=== PATIENT | female | born 1960 | race Caucasian/White ===

== ENCOUNTER 2019-10-17 16:50 | Emergency (ER) | payer BC ==
[2019-10-17] MEDS ORDERED: KETOROLAC 30 MG/ML VIAL IVP ONE (17:22)
[2019-10-17] MEDS ORDERED: 0.9 % SODIUM CHLORIDE 1,000 ML BAG IV ONE (17:22)
[2019-10-17] MEDS ORDERED: METOCLOPRAMIDE HCL 10 MG/2 ML VIAL IVP ONE (17:22)
[2019-10-17] MEDS ORDERED: DIPHENHYDRAMINE HCL 50 MG/ML VIAL IVP ONE (17:22)
--- NOTE | 2019-10-17 17:27 | Emergency Department Record ---
History of Present Illness - General Chief Complaint: Headache Migraine Stated Complaint: HEADACHE,VOMITING, Time Seen by Provider: 10/17/19 16:56 Source: Patient, Family Mode of Arrival: Ambulatory Limitations: No limitations - History of Present Illness Initial Comments: The patient is here due to a migraine GLEZ for one day. She woke up with this GLEZ this AM and it has gradually worsened during the day. She has had mild photophobia and 3 episodes of vomiting and has been unable to keep anything down. The patient has a long hx of migraine GLEZ's similar to this and has not had one for about a year. She has seen a Neurologist for it in the past and has had a neg workup for it. MD Complaint: Headache Onset/Timin -: Days(s) Onset Description: Awoke with symptoms Location: Frontal Severity: Moderate Severity scale (1-10): 8 Quality: Similar to previous headaches, Other Consistency: Constant Improves With: Nothing Worsens With: Light Associated Symptoms: Nausea, Photophobia Treatments Prior to Arrival: None - Related Data Home Medications Medication Instructions Recorded Confirmed Last Taken Olmesartan/Hydrochlorothiazide 1 each PO DAILY 10/17/19 10/17/19 10/16/19 [Olmesartan-Hctz 20-12.5 mg Tab] Previous Rx's Medication Instructions Recorded Ondansetron [Zofran Odt] 4 mg SL .Q4-6H PRN #12 tab.rapdis 10/17/19 Allergies Allergy/AdvReac Type Severity Reaction Status Date / Time erythromycin base Allergy rash Verified 10/17/19 17:02 Penicillins Allergy rash Verified 10/17/19 17:02 hydrochlorothiazide AdvReac SWOLLEN Verified 10/17/19 17:06 [From Hyzaar] EYES losartan [From Hyzaar] AdvReac SWOLLEN Verified 10/17/19 17:06 EYES Travel/Exposure Screening - Travel/Exposure Within Last 30 Days Have you traveled within the last 30 days?: No - Travel/Exposure Within Last Year Have you traveled outside the [place] in the last year?: No - Additonal Travel/Exposure Details Have you been exposed to anyone with a communicable illness?: No - Travel Symptoms Symptom Screening: None Review of Systems Constitutional: Denies: Chills, Fever Eyes: Denies: Eye discharge ENT: Denies: Congestion Respiratory: Denies: Cough, Dyspnea Cardiovascular: Denies: Chest pain Endocrine: Denies: Fatigue Gastrointestinal: Reports: Nausea, Vomiting. Denies: Diarrhea Genitourinary: Denies: Dysuria Musculoskeletal: Denies: Arthralgia Past Medical History - SOCIAL HISTORY Smoking Status: Never smoker Alcohol Use: None Drug Use: None - RESPIRATORY Hx Respiratory Disorders: No - CARDIOVASCULAR Hx Cardio Disorders: Yes Hx Hypertension: Yes - NEURO Hx Neuro Disorders: Yes Hx Headaches: Yes - GI Hx GI Disorders: No - Hx Genitourinary Disorders: No - ENDOCRINE Hx Endocrine Disorders: No - MUSCULOSKELETAL Hx Musculoskeletal Disorders: No - PSYCH Hx Psych Problems: No - HEMATOLOGY/ONCOLOGY Hx Hematology/Oncology Disorders: No Family Medical History Any Significant Family History?: Yes Hx Cancer: Father Hx Diabetes: Father Hx Heart Disease: Mother Hx Resp Disorders: Mother Physical Exam - General General Appearance: Alert, Oriented x3, Cooperative, Mild distress (due to the GLEZ.) - Head Head exam: Atraumatic, Normocephalic - Eye Eye exam: Normal appearance, PERRL, EOMI - ENT Throat exam: Normal inspection. negative: Tonsillar erythema, Tonsillar exudate - Neck Neck exam: Normal inspection, Full ROM. negative: Lymphadenopathy, Meningismus (The neck is very supple.), Tenderness - Respiratory Respiratory exam: Normal lung sounds bilaterally. negative: Respiratory distress - Cardiovascular Cardiovascular Exam: Regular rate, Normal rhythm, Normal heart sounds - GI/Abdominal GI/Abdominal exam: Soft, Normal bowel sounds. negative: Tenderness - Extremities Extremities exam: Normal inspection, Full ROM, Normal capillary refill. negative: Tenderness - Back Back exam: Reports: Normal inspection - Neurological Neurological exam: Alert, Normal gait, Oriented X3, Other (Neg Drift and Rhomberg.). negative: Abnormal gait, Altered, Motor sensory deficit - Psychiatric Psychiatric exam: negative: Anxious Course Vital Signs 10/17/19 17:07 Temperature 97.6 F Pulse Rate 79 Respiratory 20 Rate Blood Pressure 139/71 Pulse Ox 100 - Reevaluation(s) Reevaluation #1: The patient is doing a lot better at this time. Her GLEZ is 80-90% improved and he she is much more comfortable. 10/17/19 18:30 Reevaluation #2: The patient continues to improved and is feeling much better and is ready for home. I did discuss the neg head CT with her and the need for F/U with her PCP. I did discuss the need for an LP due to the negative head CT but the patient is refusing that plan. I then did explain to the patient that the risk of NOT doing the LP is that we could rarely <2% miss a leaking SAH which if not found early could lead to worsening pain, a stroke, disability and . The patient presently has proper decision making capacity and fully accepts the risks of r efusing and understands we cannot be held liable for NOT doing the test. She will see her doctor next week if F/U. 10/17/19 19:04 Medical Decision Making - Data Complexity MDM Data: Labs Ordered and/or Reviewed, X-Ray Ordered and/or Reviewed - Lab Data Result diagrams: 10/17/19 17:10 10/17/19 17:10 - Radiology Data Radiology results: Report reviewed (Head CT: Neg for any acute changes.) Disposition Disposition: Discharge Clinical Impression: Migraine Qualifiers: Migraine type: unspecified Status migrainosus presence: without status migrainosus Intractability: not intractable Qualified Code(s): G43.909 - Migraine, unspecified, not intractable, without status migrainosus Disposition: Home, Self-Care Condition: (2) Stable Instructions: Migraine Headache (ED) Additional Instructions: Please continue your regular medicines and please see your doctor this next week if not better. Return to the ER for any worsening or new symptoms and take the Zofran for nausea if needed. Prescriptions: Ondansetron [Zofran Odt] 4 mg SL .Q4-6H PRN #12 tab.rapdis PRN Reason: Nausea Forms: Patient Portal Access Time of Disposition: 19:01 Quality - Quality Measures Quality Measures: Headache (All Ages) - Headache: Neuroimaging Quality Measure: Measure #419: Overuse of Neuroimaging ICD10 Codes Entered: Yes View Detail: Yes Neurological Exam: Patient had a normal neurological exam. [G9535] Headache: Use of Neuroimaging: CTA, CT, MRA or MRI Ordered [G9538] Medical Reason for Exam: Recent Onset of Severe Headache - Blood Pressure Screening View Details: Yes Does Patient Have Any of the Following: No Blood Pressure Classification: Normal BP Reading Systolic Measurement: 118 Diastolic Measurement: 68 Screening for High Blood Pressure: < Normal BP, F/U Not Required > [G8783]
[2019-10-17 17:47] LABS: ABSOLUTE NEUTROPHIL COUNT 4.79; HEMATOCRIT 41.2 % (35.0-47.0); HEMOGLOBIN 14.1 gm/dl (11.6-16.0); MEAN CELL VOLUME 89.2 fl (81-97); MEAN CORPUSCULAR HEMOGLOBIN 30.5 pg (27-33); MEAN CORPUSCULAR HGB CONC 34.2 g/dl (32-36); MEAN PLATELET VOLUME 9.7 fl (7.4-10.4); PLATELET COUNT 270 K/uL (130-400); RED BLOOD COUNT 4.62 M/uL (3.80-5.40); RED CELL DISTRIBUTION WIDTH 12.6 % (11.5-14.5); WHITE BLOOD COUNT W/O DIFF 5.5 K/uL (4.2-12.2)
[2019-10-17 17:54] LABS: PLATELET ESTIMATE NORMAL (NORMAL)
[2019-10-17 18:01] LABS: BLOOD UREA NITROGEN 13 mg/dL (8-23); CREATININE 0.6 mg/dL (0.5-0.9); EST GLOMERULAR FILTRATION RATE > 60 mL/min
[2019-10-17 18:02] LABS: TOTAL PROTEIN 7.2 g/dL (6.6-8.7)
[2019-10-17 18:04] LABS: GLUCOSE,RANDOM 146 mg/dL (74-109)
[2019-10-17 18:06] LABS: ALT/SGPT 18 U/L (<33)
[2019-10-17 18:07] LABS: ALB/GLOB RATIO 1.7 (1.1-1.8); ALBUMIN 4.5 g/dL (4.0-5.0); ALKALINE PHOSPHATASE 90 U/L (35-104); AST/SGOT 24 U/L (10.0-35.0)
--- NOTE | 2019-10-17 19:11 | CT SCAN REPORT ---
EXAMINATION: HEAD WO CONTRAST EXAM DATE: 10/17/2019 6:49 PM TECHNIQUE: Noncontrast axial images were obtained to the brain. Coronal and sagittal reformatted james ges were generated. INDICATION: GLEZ with migraines COMPARISON: None. ENCOUNTER: Not applicable HAND DOMINANCE: Unknown. FINDINGS: The ventricular system is normal in size and morphology. The basal cisterns are patent and there is n o midline shift or herniation. The brain parenchyma is unremarkable. No loss of leija-white matter differentiation or sulcal effaceme nt to indicate acute infarction. No evidence of intracranial mass. No intra-axial or extra-axial fluid collection. The paranasal sinuses and mastoid air cells are unremarkable. The orbital structures are unremarkabl e. The calvarium is intact. IMPRESSION: No evidence of acute intracranial abnormality. Dictated by: Zak Page MD on 10/17/2019 7:05 PM. .
[2019-10-17] MEDS ORDERED: ONDANSETRON 4 MG ODT TABLET SL ONE (19:27)
== END 2019-10-17 19:33 | disposition home or self-care (01) ==
LOC: ER 16:50
DX: G43.909 Migraine, unspecified, not intractable, without status migrainosus (principal); R11.0 Nausea; H53.149 Visual discomfort, unspecified; I10 Essential (primary) hypertension
CPT/HCPCS: 70450; 80053; 85027; 96374; 96375; 99284; J1200; J1885; J2765; J7030